=== PATIENT | male | born 1955 | race Hispanic/Latino ===

== ENCOUNTER 2017-02-18 12:40 | Inpatient (IN) | payer MEDICARE, OTHER ==
[2017-02-18 12:40] VITALS: BMI 24.1
--- NOTE | 2017-02-18 12:53 | C.PDOC ---
History Of Present Illness 61 Y/O MALE PRESENTS TO ED INITIALLY REQUESTING DETOX. PATIENT NOW REPORTS SUICIDAL IDEATION. DENIES SUICIDAL PLAN, ATTEMPT, OR OTHER COMPLAINTS. Time Seen by Provider: 02/18/17 12:50 Chief Complaint (Nursing): Substance Abuse History Per: Patient History/Exam Limitations: no limitations Onset/Duration Of Symptoms: Persistent Current Symptoms Are (Timing): Still Present Associated Symptoms: Suicidal Thoughts. denies: Suicidal Plan Recent travel outside of the [place]: No Past Medical History Reviewed: Historical Data, Nursing Documentation, Vital Signs Vital Signs: Last Vital Signs Temp 98.3 F 02/18/17 14:17 Pulse 64 02/18/17 14:17 Resp 16 02/18/17 14:17 BP 138/65 02/18/17 14: Pulse Ox 97 02/18/17 17:45 - Medical History PMH: Anemia, Anxiety, CAD, Diabetes, HTN, Hypercholesterolemia, Peripheral Edema Surgical History: CABG (x 3) - [facility] Procedures BYPASS RIGHT FEMORAL ARTERY TO POPLIT ART, OPEN APPROACH (06/10/16) CHANGE PRESSURE DRESSING ON LEFT LOWER EXTREMITY (10/25/16) CORONAR ARTERIOGR-2 CATH (11/08/01) DETACHMENT AT LEFT 1ST TOE, HIGH, OPEN APPROACH (01/25/16) DETACHMENT AT LEFT 2ND TOE, COMPLETE, OPEN APPROACH (05/02/16) DETACHMENT AT LEFT LOWER LEG, HIGH, OPEN APPROACH (08/24/16) DILATE L ANT TIB ART, BIFURC, W DRUG-ELUT INTRA, PERC (05/02/16) DILATE L FEM ART, BIFURC, W INTRALUM DEV, PERC (05/02/16) DILATE OF L POPL ART WITH DRUG-ELUT INTRALUM, PERC APPROACH (01/25/16) DILATION OF L FEM ART WITH DRUG-ELUT INTRALUM, PERC APPROACH (01/25/16) ENDOSC POLYPECTOMY OF LG INTEST (10/30/04) EXCISION OF L FOOT SUBCU/FASCIA, OPEN APPROACH (05/02/16) EXCISION OF LEFT TIBIA, OPEN APPROACH (10/25/16) EXERCISE TREATMENT OF MUSCULOSK LOW BACK/LE USING PROSTHESIS (08/30/16) EXTIRPATION OF MATTER FROM L FEM ART, BIFURC, PERC APPROACH (05/02/16) EXTIRPATION OF MATTER FROM L FEM ART, PERC APPROACH (01/25/16) EXTIRPATION OF MATTER FROM L POPL ART, PERC APPROACH (01/25/16) HOME MANAGEMENT TREATMENT (08/30/16) INSERTION OF INFUSION DEV INTO SUP VENA CAVA, PERC APPROACH (08/30/16) INTRODUCE OF OTH THROMBOLYTIC INTO PERIPH ART, PERC APPROACH (05/02/16) LEFT HEART CARDIAC CATH (11/08/01) LT HEART ANGIOCARDIOGRAM (11/08/01) MANUAL THERAPY TECHNIQUES TREATMENT OF MUSCULOSK LOW BACK/LE (08/30/16) MRI OF OTHER AND UNSPECIFIED SITES (02/03/03) OTHER LOCAL DESTRUC SKIN (06/19/99) PLAIN RADIOGRAPHY OF AORTA, BI LE ART USING OTH CONTRAST (05/02/16) RESECTION OF LEFT METATARSAL, OPEN APPROACH (05/02/16) RETROGRADE PYELOGRAM (06/12/03) TETANUS TOXOID ADMINIST (07/17/14) TRANSURETH BLADD BIOPSY (06/12/03) TU DESTRUC BLADD LES NEC (01/15/04) WHEELCHAIR MOBILITY TREATMENT (08/30/16) Family History: States: Unknown Family Hx - Social History Hx Tobacco Use: Yes Hx Alcohol Use: No (denies) Hx Substance Use: Yes - Immunization History Hx Influenza Vaccination: No Review Of Systems Except As Marked, All Systems Reviewed And Found Negative. Constitutional: Negative for: Fever Cardiovascular: Negative for: Chest Pain, Palpitations Respiratory: Negative for: Cough, Shortness of Breath Gastrointestinal: Negative for: Nausea, Vomiting, Abdominal Pain, Diarrhea Psych: Positive for: Suicidal ideation Physical Exam - Physical Exam Appears: Non-toxic, No Acute Distress, Other (FLIPPANT, NO ACUTE DISTRESS OR SIGNS OF WD) Skin: Warm, Dry Head: Atraumatic, Normacephalic Chest: Symmetrical Cardiovascular: Rhythm Regular Respiratory: Normal Breath Sounds, No Rales, No Rhonchi, No Wheezing Gastrointestinal/Abdominal: Soft, No Tenderness Back: Normal Inspection Extremity: Capillary Refill (< 2 SEC.), Other (NECROTIC TIPS TO 1st, 4th, & 5th toes - ERYTHEMA TO ALL RIGHT TOES. LEFT BKA.) Neurological/Psych: Oriented x3 ED Course And Treatment - Laboratory Results Result Diagrams: 02/18/17 13:38 02/18/17 13:38 O2 Sat by Pulse Oximetry: 97 (RA) Pulse Ox Interpretation: Normal - Other Rad R FOOT X-RAY X-Ray: Viewed By Me, Read By Radiologist Interpretation: IMPRESSION: Degenerative changes. Osseous demineralization. No acute displaced fracture or dislocation identified.If symptoms persist, or if there is continued clinical concern, x-ray follow-up in 7-10 days should be considered. Progress - Re-Evaluation Re-evaluation Note: 02/18/17 12:52 D/W CRISIS JANAY S/P PT EVAL. STATES WHEN PT ADVISED NO DETOX BED AVAIL PT CO SUICIDAL IDEATION. WILL EVAL FOR POSSIBLE PSYCH ADMIT 02/18/17 13:50 PS W R FOOT LESIONS X 1 MONTH. DENIES PAIN. D/W PODIATRY RESIDENT WILL EVAL IN ER 02/18/17 15:09 d/w podiatry: no emergent plan for surgery, no indication for abx @ this time. Dressing changes only. d/w crisis, dr chacko accepts for psych/detox. uds pending. 02/18/17 16:12 APPEARS COMFORTABLE NAD. IVF IN PROGRESS. REPEAT VBG PENDING 02/18/17 17:10 REPEAT LACTATE IMPROVED COMPARED TO PRIOR. MED CLEAR FOR PSYCH. CRISIS NOTIFIED. RECOMMEND MEDICINE AND PODIATRY CONSULT FOR FURTHER MANAGEMENT OF FOOT AND UTI. - Data Reviewed Data Reviewed: Lab, Diagnostic imaging, Old records Disposition Counseled Patient/Family Regarding: Studies Performed, Diagnosis - Disposition Disposition: HOSPITALIZED Disposition Time: 18:02 Condition: STABLE Forms: [facility] (Macanese) - POA Present On Arrival: None - Clinical Impression Clinical Impression: Depression, Opiate abuse, continuous, UTI (urinary tract infection), Dry gangrene - Scribe Statement The provider has reviewed the documentation as recorded by the Scribe SM All medical record entries made by the Scribe were at my direction and personally dictated by me. I have reviewed the chart and agree that the record accurately reflects my personal performance of the history, physical exam, medical decision making, and the department course for this patient. I have also personally directed, reviewed, and agree with the discharge instructions and disposition. Decision To Admit - Pt Status Changed To: Hospital Disposition Of: Inpatient - Admit Certification Admit to Inpatient:: After my assessment, the patient will require hospitalization for at least two midnights. This is because of the severity of symptoms shown, intensity of services needed, and/or the medical risk in this patient being treated as an outpatient. - InPatient: Physician Admission Certification: I certify that this patient requires 2 or more midnights of care for the following reason:: SEE NOTE - . Bed Request Type: Psychiatry Admitting Physician: Casey Chacko Patient Diagnosis: Depression, Opiate abuse, continuous, UTI (urinary tract infection), Dry gangrene
[2017-02-18 13:43] LABS: BASO # 0.1 K/uL (0.0-0.2); BASO % 0.7 % (0.0-2.0); EOS # 0.4 K/uL (0.0-0.7); EOS % 4.3 % (0.0-4.0); HEMATOCRIT 34.2 % (35.0-51.0); LYMPH # 1.3 K/uL (1.0-4.3); LYMPH % 14.2 % (20.0-40.0); MEAN CORPUSCULAR HEMOGLOBIN 29.2 pg (27.0-31.0); MEAN CORPUSCULAR HGB CONC 33.6 g/dL (33.0-37.0); MONO # 0.5 K/uL (0.0-0.8); MONO % 5.7 % (0.0-10.0); RED CELL DISTRIBUTION WIDTH 13.8 % (11.5-14.5)
[2017-02-18 13:53] LABS: CHLORIDE 100 mmol/L (98-107); POTASSIUM 3.9 mmol/L (3.6-5.2); SODIUM 136 mmol/L (132-148)
[2017-02-18 13:55] LABS: AST/SGOT 16 U/L (17-59); BILIRUBIN,TOTAL 0.4 mg/dL (0.2-1.3); CARBON DIOXIDE 22 mmol/L (22-30); GFR AFRICAN-AMERICAN > 60
[2017-02-18 13:56] LABS: ALB/GLOB RATIO 0.9 (1.0-2.1); ALCOHOL SERUM < 10 mg/dl (0-10); ALKALINE PHOSPHATASE 86 U/L (38-126); ALT/SGPT 22 U/L (21-72); BLOOD UREA NITROGEN 20 mg/dL (9-20); CALCIUM 8.6 mg/dl (8.6-10.4); GLUCOSE,RANDOM 368 mg/dL (75-110); TOTAL PROTEIN 6.5 g/dL (6.3-8.3)
[2017-02-18] MEDS ORDERED: Sodium Chloride 0.9% 2,500 ML IV ONE (14:23)
[2017-02-18] MEDS ORDERED: (Novolin R) Insulin Human Regular 100 units/ml vial IV STA (14:23)
--- NOTE | 2017-02-18 14:28 | RAD ---
PROCEDURE: Right Foot Radiographs. HISTORY: trauma COMPARISON: None available. FINDINGS: BONES: Osseous demineralization limits evaluation for acute fracture lines. No acute displaced fracture. Small heel spur and calcaneal enthesophyte JOINTS: No dislocation. SOFT TISSUES: Unremarkable. No evidence of radiopaque foreign body. OTHER FINDINGS: None. IMPRESSION: Degenerative changes. Osseous demineralization. No acute displaced fracture or dislocation identified.If symptoms persist, or if there is continued clinical concern, x-ray follow-up in 7-10 days should be considered.
[2017-02-18] MEDS ORDERED: Sodium Chloride 0.9% 1,000 ML ONE (14:39)
[2017-02-18] MEDS ORDERED: (Novolin R) Insulin Human Regular 100 units/ml vial ONE (14:39)
--- NOTE | 2017-02-18 14:49 | CP.PCM.CON ---
History of Present Illness - History of Present Illness History of Present Illness: 61 year old male with PMHx including CAD s/p CABG, IVDA, Hepatitis C, DM, osteomyelitis, and L BKA seen in the ED for consult of right foot gangrene. He is an unreliable historian. Patient has been seen previously by podiatry at various [facility]. He states that he saw Dr. Myers last week and states that his foot looks better today. He states that he is here today for detox. He admits to pain to this right foot. He states that he was taking antibiotics prescribed to him but does not remember which ones he was given. Pt denies F/C/N/V/SOB. Social: denies EtOH. Admits cigarettes. Admits to heroin abuse All: NKDA Past Patient History - Infectious Disease Hx of Infectious Diseases: None - Tetanus Immunizations Tetanus Immunization: Up to Date (07/2014) - Past Medical History & Family History Past Medical History?: Yes - Past Social History Smoking Status: Heavy Smoker > 10 Cigarettes Daily - CARDIAC Hx Hypercholesterolemia: Yes Hx Hypertension: Yes Hx Peripheral Edema: Yes - PULMONARY Hx Respiratory Disorders: No - NEUROLOGICAL Hx Alzheimer's Disease: No - HEENT Hx HEENT Problems: No - RENAL Hx Chronic Kidney Disease: No - ENDOCRINE/METABOLIC Hx Endocrine Disorders: Yes Hx Diabetes Mellitus Type 2: Yes - HEMATOLOGICAL/ONCOLOGICAL Hx Anemia: Yes - INTEGUMENTARY Hx Dermatological Problems: Yes (SKIN DISCOLORATION) Other/Comment: l bka,rt 3RD,4TH TOES AND grt TOE - MUSCULOSKELETAL/RHEUMATOLOGICAL Hx Musculoskeletal Disorders: Yes Hx Falls: Yes Hx Osteomyelitis: Yes Hx Unsteady Gait: Yes Other/Comment: lbka - GASTROINTESTINAL Hx Gastrointestinal Disorders: No - GENITOURINARY/GYNECOLOGICAL Hx Genitourinary Disorders: Yes Hx Prostate Problems: Yes (PROSTATE ca) - PSYCHIATRIC Hx Anxiety: Yes Hx Substance Use: Yes - SURGICAL HISTORY Hx Coronary Artery Bypass Graft: Yes (x 3) - ANESTHESIA Hx Anesthesia: Yes Hx Anesthesia Reactions: No Hx Malignant Hyperthermia: No Meds Allergies/Adverse Reactions: Allergies Allergy/AdvReac Type Severity Reaction Status Date / Time No Known Allergies Allergy Verified 02/18/17 12:43 - Medications Medications: Current Medications Sodium Chloride (Sodium Chloride 0.9%) 2,500 mls @ 1,000 mls/hr IV .Q2H30M ONE Stop: 02/18/17 16:52 Physical Exam - Extremities Exam Additional comments: Lower extremity focused examination: Left: BKA stump Right: Vasc: DP and PT pulses palpable 2/4, temperature gradient warm to cold from proximal to distal. CFT < 3 sec to all digits, no pedal edema Neuro: protective sensation grossly diminished Derm: Dry eschar on distal aspect of right hallux with erythema noted to the distal tip of the hallux. No fluctuance, no malodor, no drainage, no erythema. Dry ulceration noted to distal aspect of 4th toe with eschar. Localized erythema noted to 4th digit distally surrounding the digit. No purulence, no fluctuance, no ascending cellulitis.Erythema also noted to the 5th digit on the right Ortho: Moderate pain on palpation to hallux and 4th digit on the right. - Neurological Exam Neurological exam: Alert - Psychiatric Exam Psychiatric exam: Agitated Results - Vital Signs Recent Vital Signs: Last Vital Signs Temp 98.3 F 02/18/17 14:17 Pulse 64 02/18/17 14:17 Resp 16 02/18/17 14:17 BP 138/65 02/18/17 14:17 Pulse Ox 97 02/18/17 14:23 - Labs Result Diagrams: 02/18/17 13:38 02/18/17 13:38 Labs: Laboratory Results - last 24 hr 02/18/17 02/18/17 02/18/17 13:38 13:38 14:13 WBC 9.0 RBC 3.93 L Hgb 11.5 L Hct 34.2 L MCV 87.0 MCH 29.2 MCHC 33.6 RDW 13.8 Plt Count 252 MPV 9.0 Neut % (Auto) 75.1 H Lymph % (Auto) 14.2 L [place] % (Auto) 5.7 Eos % (Auto) 4.3 H Baso % (Auto) 0.7 Neut # 6.8 Lymph # 1.3 [place] # 0.5 Eos # 0.4 Baso # 0.1 pO2 39 VBG pH 7.35 VBG pCO2 44 VBG HCO3 23.0 VBG Total CO2 25.7 VBG O2 Sat (Calc) 78.4 H VBG Base Excess -1.5 L VBG Potassium 3.8 Glucose 320 H Lactate 2.4 H Sodium 136 138.0 Potassium 3.9 Chloride 100 101.0 Carbon Dioxide 22 Anion Gap 18 BUN 20 Creatinine 1.1 Est GFR ( Amer) > 60 Est GFR (Non-Af Amer) > 60 Random Glucose 368 H Calcium 8.6 Total Bilirubin 0.4 AST 16 L ALT 22 Alkaline Phosphatase 86 Total Protein 6.5 Albumin 3.0 L Globulin 3.4 Albumin/Globulin Ratio 0.9 L Venous Blood Potassium 3.8 Alcohol, Quantitative < 10 Assessment & Plan - Assessment and Plan (Free Text) Assessment: 61 year old male with dry gangrene noted to the distal aspects of the right hallux and right 4th digit Plan: patient examined and evaluated discussed in detail with attending, Dr. Anaya radiographic IMPRESSION: Degenerative changes. Osseous demineralization. No acute displaced fracture or dislocation identified.If symptoms persist, or if there is continued clinical concern, x-ray follow-up in 7-10 days should be considered. chart, labs, vitals reviewed;afebrile, WBC 9.0 foot dressed with betadine, DSD dressing changes with betadine, DSD daily no plans for surgical intervention at this time
[2017-02-18 15:43] LABS: RBC URINE 87 /hpf (0-3); URINE BACTERIA RARE (<OCC); URINE BILIRUBIN NEGATIVE (NEGATIVE); URINE BLOOD 1+ (NEGATIVE); URINE COLOR Amber (YELLOW); URINE GLUCOSE (UA) 3+ mg/dL (Normal); URINE KETONE NEGATIVE (NEGATIVE); URINE LEUKOCYTE ESTERASE 3+ Leu/uL (Negative); URINE PROTEIN 2+ mg/dL (NEGATIVE); URINE UROBILINOGEN NORMAL mg/dL (0.2-1.0); WBC CLUMPS FEW /hpf; WBC URINE 1987 /hpf (0-5)
[2017-02-18] MEDS ORDERED: Ciprofloxacin 400mg/200ml D5W 400 MG/200 ML BAG IV ONE (16:00)
[2017-02-18 17:08] LABS: VENOUS BLOOD GAS BASE EXCESS -10.4 mmol/L (0.0-2.0); VENOUS BLOOD GAS PCO2 31 mmHg (40-60); VENOUS BLOOD PH 7.29 (7.32-7.43)
[2017-02-18] MEDS ORDERED: Potassium Chloride 20 mEq/15 ml LIQ UD PO STA (17:10)
[2017-02-18] MEDS ORDERED: Ciprofloxacin 400mg/200ml D5W 400 MG/200 ML BAG IVPB ONE (17:23)
[2017-02-18] MEDS ORDERED: Potassium Chloride 20 mEq/15 ml LIQ UD ONE (17:24)
--- NOTE | 2017-02-18 23:05 | PCM.BM ---
<Sirisha Blanco - Last Filed: 02/18/17 23:03> Treatment Plan Problems - Problems identified on initial assessmt Opiates Abuse Date Initiated: 02/18/17 Time Initiated: 19:45 Assessment reference: NA Status: Active Suicidal Ideation Date Initiated: 02/18/17 Time Initiated: 19:45 Assessment reference: NA Status: Active Treatment assets and liabiliti Patient Liabilities: live alone, physical pain, financial problems, poor support system, substance abuse, medical problems - Milieu Protocol Maintain good personal hygiene: daily Encourage regular showers, daily Remind patient to perform daily oral care Maintain personal safety: every shift Educate patient to report safety concerns to staff, every shift Monitor environment for contraband/sharps Medication safety: Monitor for expected outcome, potential side effects: every shift, Assess barriers to learning: every shift, Assess readiness for medication education: every shift <Heide Fernandez - Last Filed: 02/20/17 10:15> Discharge/Continuing Care - Education Needs Education Needs: Patient Medication, Patient Coping Skills, Patient Placement options, Patient Community resources, Patient Uses of Medical Equipment, Patient Personal Hygiene/Grooming - Discharge Discharge Criteria: Tolerates medication w/o severe side effects, Ability to care for self, Reduction of target symptoms <[place] - Last Filed: 02/24/17 19:02> - Diagnosis (1) Opiate dependence Status: Acute Interventions: 02/24/17 19:01 Methadone taper (2) Major depressive disorder, recurrent, unspecified Status: Acute Interventions: 02/24/17 19:02 Psychotherapy
[2017-02-19] MEDS ORDERED: Bacitracin 500 Units/gm Oint Foilpak UD TOP PRN (15:23)
--- NOTE | 2017-02-19 20:05 | PCM.PSYCH ---
Initial Psychiatric Evaluation - Initial Psychiatric Evaluation Type of Admission: Voluntary Legal Status: Capacity Chief Complaint (in patient's own words): I'm here for the treatment of heroine use and withdrawal History of Present Illness and Precipitating Events: Patient is a 61 years old, , retired male with history of depression and heroin use was admitted for treatment of withdrawing from heroin. Reported problem with sleep but no appetite problem. Denied any current suicidal or homicidal ideations or any suicidal attempts. Reported yesterday had suicidal ideations and came to ER for treatment and help. Denied any psychotic manic or anxiety symptoms. No previous treatment. Reported he started using heroine 1 year ago, was using 20 bags daily, snorting. Last use reported yesterday. Patient reported that before starting heroin, he was abusing opiate pain medications including morphine and Percocet. Denied use of any other drugs including cocaine cannabis or alcohol. Smokes one pack of cigarettes daily. Patient has history of diabetes mellitus left below-knee amputation. Also has history of CABG. Current Medications: Active Medications Generic Name Dose Route Start Last Admin Trade Name Freq PRN Reason Stop Dose Admin Acetaminophen 650 mg 02/18/17 18:00 Tylenol 325mg Tab PO Q6 PRN Fever >100.4 F Bacitracin 1 ea 02/20/17 10:00 Bacitracin TOP DAILY AYESHA Benztropine Mesylate 2 mg 02/18/17 18:00 Cogentin PO Q6 PRN Extra Pyramidal Symptoms Ciprofloxacin 500 mg 02/19/17 10:00 02/19/17 18:05 Cipro PO 500 mg BID AYESHA Administration Clonidine HCl 0.1 mg 02/18/17 18:30 Catapres PO Q8 PRN COWS Score More or Equal to 5 Diphenhydramine HCl 50 mg 02/18/17 18:30 Benadryl PO Q6 PRN Extra Pyramidal Symptoms Haloperidol 5 mg 02/18/17 18:00 Haldol PO Q8 PRN Moderate Agitation Loperamide HCl 2 mg 02/18/17 18:30 Imodium PO Q8 PRN Diarrhea Metformin HCl 500 mg 02/18/17 20:45 02/19/17 18:05 Glucophage PO 500 mg BID AYESHA Administration Methadone HCl 10 mg 02/20/17 10:30 Methadone PO 02/20/17 10:31 ONCE ONE Ondansetron HCl 4 mg 02/18/17 18:01 Zofran Tab PO Q8 PRN Nausea/Vomiting Pseudoephedrine HCl 60 mg 02/18/17 18:01 Sudafed Tab PO QID PRN Nasal/Sinus Congestion Trazodone HCl 50 mg 02/18/17 22:00 02/18/17 21:00 Desyrel PO 50 mg HS AYESHA Administration Past Psychiatric History - Past Psychiatric History Previous Treatment History: None History of Abuse: None reported History of ETOH/Drug Use: See HPI History of Family Illness: Reported his maternal and has unknown psychiatric illness Pertinent Medical Hx (Current Medical&Sleep Prob, Allergies): Allergies Allergy/AdvReac Type Severity Reaction Status Date / Time No Known Allergies Allergy Verified 02/18/17 12:43 metFORMIN [glucOPHAGE] 500 mg PO BID tab 02/09/17 CAD s/p CABG, , Hepatitis C DM, osteomyelitis, Review of Systems - Psychiatric Psychiatric: Depression, Other Mental Status Examination - Personal Presentation Personal Presentation: Looks stated age - Affect Affect: Depressed - Motor Activity Motor Activity: Calm - Reliability in Providing Information Reliability in Providing Information: Fair - Speech Speech: Organized - Mood Mood: Depressed - Formal Thought Process Formal Thought Process: No Impairment - Hallucinations/Delusions Hallucinations: Other (None reported) Delusions: Other - Obsessions/Compulsions Obsessions: None Compulsions: None - Cognitive Functions Orientation: Person, Place, Situation, Time Sensorium: Alert Attention/Concentration: Attentive Abstract Thinking: [place] Estimate of Intelligence: Average Judgement: Intact, as evidence by: Insight regarding need for hospitalization Memory: Recent intact, as evidence by: 3/3 object recall, Remote intact, as evidenced by: Ability to recall historical events - Risk Risk: Withdrawal, Diminished functioning - Strength & Assets Inventory Strength & Assets Inventory: Cooperative - Limitations Limitations: Living alone DSM 5 DX - DSM 5 DSM 5 Diagnosis: Opiate use disorder severe Unspecified depressive disorder - Recommended/Plan of Treatment Treatment Recommendations and Plan of Treatment: Patient education Supportive therapy Continue treatment with methadone taper Other when necessary medications Will call surgery as patient has gangrene on right big toe Projected ELOS: 8-10 days Prognosis: Average - Smoking Cessation Smoking Cessation Initiated: Yes
--- NOTE | 2017-02-19 20:25 | CP.PCM.CON ---
History of Present Illness - History of Present Illness History of Present Illness: Vascular Surgery Consult Note for Dr. Chopra 61 M with PMH ofCAD s/p CABG, IVDA, Hepatitis C, DM, osteomyelitis, and L BKA presents with complaint of right foot gangrene. Patient is poor historian. Patient states his foot has been like this for months. Patient reports that he was seen by Dr. Myers last week and states that his foot looks better. Patient complaining of Right foot pain. He rates pain 9/10 in severity. He describes the pain as constant and sharp located in digits of right foot. Palpation exacerbates pain while nothing alleviates it. Patient was recently prescribed antibiotics for right foot. Patient was admitted to psych for detox and found to have UTI, which he is being treated for. Admits numbness/tingling. Denies fever/chills, cp, sob, palpiations, abd pain, n/v/d, drainage, bleeding. PMH: CAD s/p CABG, PAD, IVDA, Hepatitis C, DM, osteomyelitis, and L BKA Meds: As per EMR Allergy: NKDA PSH: fem-pop bypasss with goretex graft, L BKA, CABG Hosp: numerous visit within last year for different complaints FH: unknown Social: Admits tobacco use and heroin abuse but denies ETOH Review of Systems - Review of Systems All systems: reviewed and no additional remarkable complaints except (pain, numbness/tingling) Past Patient History - Infectious Disease Hx of Infectious Diseases: None - Tetanus Immunizations Tetanus Immunization: Up to Date (07/2014) - Past Medical History & Family History Past Medical History?: Yes - Past Social History Smoking Status: Heavy Smoker > 10 Cigarettes Daily - CARDIAC Hx Hypercholesterolemia: Yes Hx Hypertension: Yes Hx Peripheral Edema: Yes - PULMONARY Hx Respiratory Disorders: No - NEUROLOGICAL Hx Alzheimer's Disease: No - HEENT Hx HEENT Problems: No - RENAL Hx Chronic Kidney Disease: No - ENDOCRINE/METABOLIC Hx Endocrine Disorders: Yes Hx Diabetes Mellitus Type 2: Yes - HEMATOLOGICAL/ONCOLOGICAL Hx Anemia: Yes - INTEGUMENTARY Hx Dermatological Problems: Yes (SKIN DISCOLORATION) Other/Comment: l bka,rt 3RD,4TH TOES AND grt TOE - MUSCULOSKELETAL/RHEUMATOLOGICAL Hx Musculoskeletal Disorders: Yes Hx Falls: Yes Hx Osteomyelitis: Yes Hx Unsteady Gait: Yes Other/Comment: lbka - GASTROINTESTINAL Hx Gastrointestinal Disorders: No - GENITOURINARY/GYNECOLOGICAL Hx Genitourinary Disorders: Yes Hx Prostate Problems: Yes (PROSTATE ca) - PSYCHIATRIC Hx Anxiety: Yes Hx Substance Use: Yes - SURGICAL HISTORY Hx Coronary Artery Bypass Graft: Yes (x 3) - ANESTHESIA Hx Anesthesia: Yes Hx Anesthesia Reactions: No Hx Malignant Hyperthermia: No Meds Allergies/Adverse Reactions: Allergies Allergy/AdvReac Type Severity Reaction Status Date / Time No Known Allergies Allergy Verified 02/18/17 12:43 - Medications Medications: Current Medications Acetaminophen (Tylenol 325mg Tab) 650 mg PO Q6 PRN PRN Reason: Fever >100.4 F Bacitracin (Bacitracin) 1 ea TOP DAILY [facility] Benztropine Mesylate (Cogentin) 2 mg PO Q6 PRN PRN Reason: Extra Pyramidal Symptoms Ciprofloxacin (Cipro) 500 mg PO BID [facility] Last Admin: 02/19/17 18:05 Dose: 500 mg Clonidine HCl (Catapres) 0.1 mg PO Q8 PRN PRN Reason: COWS Score More or Equal to 5 Diphenhydramine HCl (Benadryl) 50 mg PO Q6 PRN PRN Reason: Extra Pyramidal Symptoms Haloperidol (Haldol) 5 mg PO Q8 PRN PRN Reason: Moderate Agitation Loperamide HCl (Imodium) 2 mg PO Q8 PRN PRN Reason: Diarrhea Metformin HCl (Glucophage) 500 mg PO BID [facility] Last Admin: 02/19/17 18:05 Dose: 500 mg Methadone HCl (Methadone) 10 mg PO ONCE ONE Stop: 02/20/17 10:31 Nicotine (Nicoderm Cq) 1 patch TD DAILY [facility] Ondansetron HCl (Zofran Tab) 4 mg PO Q8 PRN PRN Reason: Nausea/Vomiting Pseudoephedrine HCl (Sudafed Tab) 60 mg PO QID PRN PRN Reason: Nasal/Sinus Congestion Trazodone HCl (Desyrel) 50 mg PO [facility] Last Admin: 02/18/17 21:00 Dose: 50 mg Physical Exam - Constitutional Appears: No Acute Distress - Head Exam Head Exam: ATRAUMATIC, NORMOCEPHALIC - Eye Exam Eye Exam: Normal appearance - ENT Exam ENT Exam: Mucous Membranes Moist - Neck Exam Neck exam: Positive for: Full Rom - Respiratory Exam Respiratory Exam: NORMAL BREATHING PATTERN - Cardiovascular Exam Cardiovascular Exam: REGULAR RHYTHM - GI/Abdominal Exam GI & Abdominal Exam: Soft. absent: Tenderness - Extremities Exam Extremities exam: Positive for: tenderness (R foot). Negative for: calf tenderness Additional comments: +DP, +PT pulses on RLE sensation diminished in right foot R foot: 1st, 4th and 5th digits are gangrenous - no drainage s/p Left BKA - Neurological Exam Neurological exam: Alert - Psychiatric Exam Psychiatric exam: Normal Affect, Normal Mood - Skin Skin Exam: Dry, Warm Results - Vital Signs Recent Vital Signs: Last Vital Signs Temp 98.2 F 02/19/17 07:21 Pulse 60 02/19/17 15:50 Resp 19 02/19/17 07:21 BP 130/63 02/19/17 15:50 Pulse Ox 98 02/18/17 19:04 - Labs Result Diagrams: 02/18/17 13:38 02/18/17 13:38 Labs: Laboratory Results - last 24 hr 02/19/17 02/19/17 07:22 17:37 POC Glucose (mg/dL) 103 154 H Assessment & Plan - Assessment and Plan (Free Text) Plan: 61 M with PMH of CAD s/p CABG, IVDA, Hepatitis C, DM, osteomyelitis, and L BKA presents with complaint of right foot gangrene -Continue current management -Dressing changes as per Podiatry -No surgical intervention at this time -Will PARUL Cesar PGY1
[2017-02-20 02:08] LABS: URINE BACTERIA RARE (<OCC); URINE BILIRUBIN NEGATIVE (NEGATIVE); URINE COLOR Straw (YELLOW); URINE GLUCOSE (UA) 3+ mg/dL (Normal); URINE KETONE NEGATIVE (NEGATIVE); URINE LEUKOCYTE ESTERASE 3+ Leu/uL (Negative); URINE PROTEIN NEGATIVE (NEGATIVE); URINE UROBILINOGEN NORMAL mg/dL (0.2-1.0); WBC CLUMPS FEW /hpf; WBC URINE 267 /hpf (0-5)
[2017-02-20 02:12] LABS: RBC URINE 1 /hpf (0-3); URINE BLOOD NEGATIVE (NEGATIVE)
[2017-02-20] MEDS ORDERED: Bacitracin 500 Units/gm Oint Foilpak UD TOP SCH (10:00)
--- NOTE | 2017-02-20 10:32 | CP.PCM.PN ---
Subjective - Date & Time of Evaluation Date of Evaluation: 02/20/17 Time of Evaluation: 08:05 - Subjective Subjective: SURGERY NOTE FOR DR. RANDOLPH 61M seen and examined at bedside. Patient currently in wheel chair continues to complain of right foot/toe pain that has been going on for a while. New dressing on being managed by podiatry. Objective - Vital Signs/Intake and Output Vital Signs (last 24 hours): Temp Pulse Resp BP Pulse Ox 98.2 F 60 19 130/63 98 02/19/17 07:21 02/19/17 15:50 02/19/17 07:21 02/19/17 15:50 02/18/17 19:04 - Medications Medications: Current Medications Acetaminophen (Tylenol 325mg Tab) 650 mg PO Q6 PRN PRN Reason: Fever >100.4 F Bacitracin (Bacitracin) 1 ea TOP DAILY [facility] Last Admin: 02/20/17 09:36 Dose: Not Given Benztropine Mesylate (Cogentin) 2 mg PO Q6 PRN PRN Reason: Extra Pyramidal Symptoms Ciprofloxacin (Cipro) 500 mg PO BID [facility] Last Admin: 02/20/17 09:26 Dose: 500 mg Clonidine HCl (Catapres) 0.1 mg PO Q8 PRN PRN Reason: COWS Score More or Equal to 5 Last Admin: 02/20/17 08:50 Dose: 0.1 mg Diphenhydramine HCl (Benadryl) 50 mg PO Q6 PRN PRN Reason: Extra Pyramidal Symptoms Haloperidol (Haldol) 5 mg PO Q8 PRN PRN Reason: Moderate Agitation Loperamide HCl (Imodium) 2 mg PO Q8 PRN PRN Reason: Diarrhea Metformin HCl (Glucophage) 500 mg PO BID [facility] Last Admin: 02/20/17 09:26 Dose: 500 mg Methadone HCl (Methadone) 10 mg PO ONCE ONE Stop: 02/20/17 10:31 Last Admin: 02/20/17 09:32 Dose: 10 mg Nicotine (Nicoderm Cq) 1 patch TD DAILY [facility] Last Admin: 02/20/17 09:26 Dose: 1 patch Ondansetron HCl (Zofran Tab) 4 mg PO Q8 PRN PRN Reason: Nausea/Vomiting Pseudoephedrine HCl (Sudafed Tab) 60 mg PO QID PRN PRN Reason: Nasal/Sinus Congestion Trazodone HCl (Desyrel) 50 mg PO HS [facility] Last Admin: 02/19/17 21:25 Dose: 50 mg - Constitutional Appears: Non-toxic, No Acute Distress - Cardiovascular Exam Cardiovascular Exam: REGULAR RHYTHM, +S1, +S2 - Extremities Exam Additional comments: right foot/toes wrapped in curlex, no drainage noted. left BKA - Neurological Exam Neurological Exam: Alert, Awake Assessment and Plan - Assessment and Plan (Free Text) Assessment: 61M presents in psych unit with right toe gangrene Plan: - continue management as per podiatry - no surgical intervention at this time Further recs discuss with Dr. Keysha Cruz, PGY2
--- NOTE | 2017-02-20 16:06 | PCM.PYCHPN ---
Psychiatric Progress Note - Psychiatric Progress Note Patient seen today, length of contact: 15 minutes Patient Chief Complaint: Today I'm feeling much better. I only feel pain in my right foot. Problems Identified/Issues Discussed: Patient seen. Chart reviewed. Case discussed with the staff. Issues related to illness and treatment were discussed with the patient. Reported compliant with treatment with no adverse affects. Tolerating treatment very well. Today patient reported feeling much better with no minimal withdrawal symptoms. Also reported pain in his right foot. Surgery and podiatry is on the case. At the time of evaluation, patient was awake alert oriented 3, had no delusions, no auditory or visual hallucinations, no suicidal ideations or homicidal ideations. Medical Problems: Coronary artery disease S/P CABG Diabetes mellitus UTI Diagnostic Results: Reviewed DSM 5 Symptoms Update: Improving with treatment Medication Change: No Medical Record Reviewed: Yes Consults ordered or reviewed: Reviewed Mental Status Examination - Cognitive Function Orientation: Person, Place, Situation, Time Memory: Intact Attention: WNL Concentration: WNL Association: WN Fund of Knowledge: [facility] Decription of patient's judgement and insights: Fair - Mood Mood: Depressed (Less than before) - Affect Affect: Depressed - Speech Speech: Appropriate - Formal Thought Process Formal Thought Process: No Impairment Psychotic Thoughts and Behaviors: None - Suicidal Ideation Suicidal Ideation: No - Homicidal Ideation Homicidal Ideation: No Goal/Treatment Plan - Goal/Treatment Plan Need for Continued Stay: Remain at risks for inpatient hospitalization, Discharge may exacerbated symptoms, Severe functional impairment Progress Toward Problem(s) and Goals/Treatment Plan: Patient education Supportive therapy Continue treatment with methadone taper Other when necessary medications Estimated Date of D/C: 02/25/17 - Smoking Cessation Smoking Cessation Initiated: Yes
--- NOTE | 2017-02-21 17:08 | PCM.PYCHPN ---
Psychiatric Progress Note - Psychiatric Progress Note Patient seen today, length of contact: 15 minutes Patient Chief Complaint: I'm feeling much better. I still feel pain in my right foot. Problems Identified/Issues Discussed: Patient seen. Chart reviewed. Case discussed with the staff. Issues related to illness and treatment were discussed with the patient. Reported compliant with treatment with no adverse affects. Tolerating treatment very well. Patient reported feeling much better with no withdrawal symptoms. Also reported pain in his right foot. Surgery and podiatry is on the case. At the time of evaluation, patient was awake alert oriented 3, had no delusions, no auditory or visual hallucinations, no suicidal ideations or homicidal ideations. Medical Problems: Coronary artery disease S/P CABG Diabetes mellitus UTI Diagnostic Results: Reviewed DSM 5 Symptoms Update: Improving with treatment Medication Change: No Medical Record Reviewed: Yes Consults ordered or reviewed: Reviewed Mental Status Examination - Cognitive Function Orientation: Person, Place, Situation, Time Memory: Intact Attention: WNL Concentration: WNL Association: WN Fund of Knowledge: [facility] Decription of patient's judgement and insights: Fair - Mood Mood: Neutral - Affect Affect: Other (Appropriate) - Speech Speech: Appropriate - Formal Thought Process Formal Thought Process: No Impairment Psychotic Thoughts and Behaviors: None - Suicidal Ideation Suicidal Ideation: No - Homicidal Ideation Homicidal Ideation: No Goal/Treatment Plan - Goal/Treatment Plan Need for Continued Stay: Remain at risks for inpatient hospitalization, Discharge may exacerbated symptoms, Severe functional impairment Progress Toward Problem(s) and Goals/Treatment Plan: Patient education Supportive therapy Continue treatment with methadone taper Other when necessary medications Feels much better but still needs more time for stabilization. Estimated Date of D/C: 02/25/17 - Smoking Cessation Smoking Cessation Initiated: Yes
--- NOTE | 2017-02-22 16:14 | PCM.PYCHPN ---
Psychiatric Progress Note - Psychiatric Progress Note Patient seen today, length of contact: 15 minutes Patient Chief Complaint: I'm feeling much better. Can I get methadone 5 mg. Problems Identified/Issues Discussed: Patient seen. Chart reviewed. Case discussed with the staff. Issues related to illness and treatment were discussed with the patient. Reported compliant with treatment with no adverse affects. Tolerating treatment very well. Patient reported feeling much better with no withdrawal symptoms. Asking for more methadone 5 mg. Education provided about the medication as patient is time with his detox. At the time of evaluation, patient was awake alert oriented 3, had no delusions, no auditory or visual hallucinations, no suicidal ideations or homicidal ideations. Medical Problems: Coronary artery disease S/P CABG Diabetes mellitus UTI Diagnostic Results: Reviewed DSM 5 Symptoms Update: Improving with treatment Medication Change: No Medical Record Reviewed: Yes Consults ordered or reviewed: Reviewed Mental Status Examination - Cognitive Function Orientation: Person, Place, Situation, Time Memory: Intact Attention: WNL Concentration: WNL Association: WN Fund of Knowledge: [facility] Decription of patient's judgement and insights: Fair - Mood Mood: Neutral - Affect Affect: Other (Appropriate) - Speech Speech: Appropriate - Formal Thought Process Formal Thought Process: No Impairment Psychotic Thoughts and Behaviors: None - Suicidal Ideation Suicidal Ideation: No - Homicidal Ideation Homicidal Ideation: No Goal/Treatment Plan - Goal/Treatment Plan Need for Continued Stay: Remain at risks for inpatient hospitalization, Discharge may exacerbated symptoms, Severe functional impairment Progress Toward Problem(s) and Goals/Treatment Plan: Patient education Supportive therapy Continue treatment with methadone taper Other when necessary medications Feels much better but still needs more time for stabilization. Estimated Date of D/C: 02/25/17 - Smoking Cessation Smoking Cessation Initiated: Yes
[2017-02-23 07:36] VITALS: O2SAT 99
--- NOTE | 2017-02-23 16:34 | PCM.PYCHPN ---
Psychiatric Progress Note - Psychiatric Progress Note Patient seen today, length of contact: 15 minutes Patient Chief Complaint: I'm feeling much better. Problems Identified/Issues Discussed: Patient seen. Chart reviewed. Case discussed with the staff. Issues related to illness and treatment were discussed with the patient. Reported compliant with treatment with no adverse affects. Tolerating treatment very well. Will repeat urinalysis. Patient reported feeling much better with no withdrawal symptoms. At the time of evaluation, patient was awake alert oriented 3, had no delusions , no auditory or visual hallucinations, no suicidal ideations or homicidal ideations. Medical Problems: Coronary artery disease S/P CABG Diabetes mellitus UTI Diagnostic Results: Reviewed DSM 5 Symptoms Update: Improving with treatment Medication Change: No Medical Record Reviewed: Yes Consults ordered or reviewed: Reviewed Mental Status Examination - Cognitive Function Orientation: Person, Place, Situation, Time Memory: Intact Attention: WNL Concentration: WNL Association: WN Fund of Knowledge: [facility] Decription of patient's judgement and insights: Fair - Mood Mood: Neutral - Affect Affect: Other (Appropriate) - Speech Speech: Appropriate - Formal Thought Process Formal Thought Process: No Impairment Psychotic Thoughts and Behaviors: None - Suicidal Ideation Suicidal Ideation: No - Homicidal Ideation Homicidal Ideation: No Goal/Treatment Plan - Goal/Treatment Plan Need for Continued Stay: Remain at risks for inpatient hospitalization, Discharge may exacerbated symptoms, Severe functional impairment Progress Toward Problem(s) and Goals/Treatment Plan: Patient education Supportive therapy Continue treatment with methadone taper Other when necessary medications Feels much better but still needs more time for stabilization. Estimated Date of D/C: 02/25/17 - Smoking Cessation Smoking Cessation Initiated: Yes
[2017-02-24 09:49] VITALS: BP 143/62; PULSE 55; RESP 18; TEMP 97.6
--- NOTE | 2017-02-24 19:04 | PCM.PYCHPN ---
Psychiatric Progress Note - Psychiatric Progress Note Patient seen today, length of contact: 15 minutes Patient Chief Complaint: I'm feeling much better. Problems Identified/Issues Discussed: Patient seen. Chart reviewed. Case discussed with the staff. Issues related to illness and treatment were discussed with the patient. Reported compliant with treatment with no adverse affects. Tolerating treatment very well. Will repeat urinalysis. Patient reported feeling much better with no withdrawal symptoms. At the time of evaluation, patient was awake alert oriented 3, had no delusions , no auditory or visual hallucinations, no suicidal ideations or homicidal ideations. Medical Problems: Coronary artery disease S/P CABG Diabetes mellitus UTI Diagnostic Results: Reviewed DSM 5 Symptoms Update: Improving with treatment Medication Change: No Medical Record Reviewed: Yes Consults ordered or reviewed: Reviewed Mental Status Examination - Cognitive Function Orientation: Person, Place, Situation, Time Memory: Intact Attention: WNL Concentration: WNL Association: WN Fund of Knowledge: [facility] Decription of patient's judgement and insights: Fair - Mood Mood: Neutral - Affect Affect: Other (Appropriate) - Speech Speech: Appropriate - Formal Thought Process Formal Thought Process: No Impairment Psychotic Thoughts and Behaviors: None - Suicidal Ideation Suicidal Ideation: No - Homicidal Ideation Homicidal Ideation: No Goal/Treatment Plan - Goal/Treatment Plan Need for Continued Stay: Remain at risks for inpatient hospitalization, Discharge may exacerbated symptoms, Severe functional impairment Progress Toward Problem(s) and Goals/Treatment Plan: Patient education Supportive therapy Continue treatment with methadone taper Other when necessary medications Feels much better but still needs more time for stabilization. Estimated Date of D/C: 02/25/17 - Smoking Cessation Smoking Cessation Initiated: Yes
--- NOTE | 2017-02-25 16:28 | PCM.PYCHDC ---
Mental Status Examination - Mental Status Examination Orientation: Person, Place, Situation, Time Memory: Intact Mood: Neutral Affect: Other (Appropriate) Speech: Appropriate Attention: WNL Concentration: WNL Association: WNL Fund of Knowledge: WNL Formal Thought Process: No Impairment Description of patient's judgement and insight: Fair Psychotic Thoughts and Behaviors: None Suicidal Ideation: No Current Homicidal Ideation?: No Discharge Summary - Discharge Note Reason for Hospitalization: Opiate use disorder Psychiatric History (includes Medical, Family, Personal Hx): Opiate use disorder , diabetes mellitus Laboratory Data: Abnormal Lab Results 02/25/17 07:40 POC Glucose (mg/dL) 121 H Consultations:: List each consultation separately and include: 1. Reason for request. 2. Findings. 3. Follow-up Consultations: Reviewed Summary of Hospital Course include:: 1. Description of specific treatment plan utilized for patients during their course of treatmen. 2. Summarize the time- course for resolution of acute symptoms and/or regressed behaviors. 3. Describe issues identified and worked on during hospitalization. 4. Describe medication utilized. 5. Describe medical problems identified and treated. 6. Reassessment of suicide risk Summary of Hospital Course: Patient is a 61 years old, , retired male with history of depression and heroin use was admitted for treatment of withdrawing from heroin. Reported problem with sleep but no appetite problem. Denied any current suicidal or homicidal ideations or any suicidal attempts. Reported yesterday had suicidal ideations and came to ER for treatment and help. Denied any psychotic manic or anxiety symptoms. No previous treatment. Reported he started using heroine 1 year ago, was using 20 bags daily, snorting. Last use reported yesterday. Patient reported that before starting heroin, he was abusing opiate pain medications including morphine and Percocet. Denied use of any other drugs including cocaine cannabis or alcohol. Smokes one pack of cigarettes daily. Patient has history of diabetes mellitus left below-knee amputation. Also has history of CABG. During his stay in the hospital patient was treated with methadone for opiate withdrawal symptoms. Patient was started on other when necessary medications also. Patient had UTI and was treated with ciprofloxacin. With the above treatment patient started feeling better. Patient was also seen by medicine surgery for ganglion his wound on his right big toe. Today patient was stable and ready for discharge. At the time of evaluation and discharge, patient was awake alert oriented 3, had no delusions, no auditory or visual hallucinations , no suicidal ideations or homicidal ideations. Patient was discharged in a stable condition. - Diagnosis (1) Opiate dependence Status: Acute (2) Major depressive disorder, recurrent, unspecified Status: Acute - Final Diagnosis (DSM 5) Condition upon Discharge: STABLE Disposition: HOME/ ROUTINE Prescriptions/Medication Reconciliation: metFORMIN [glucOPHAGE] 500 mg PO BID #60 tab traZODone [Desyrel] 50 mg PO HS #30 tab - Smoking Cessation Smoking Cessation Medication prescribed: Yes - Antipsychotic Medications Pt discharged on 2 or more routine antipsychotic medications: No
== END 2017-02-25 11:00 | disposition home or self-care (01) | DRG 895 ==
LOC: C.ER 12:40 → C.5E 18:03
PROVIDERS: ADMIT Psychiatry & Neurology Psychiatry; ATTEND Psychiatry & Neurology Psychiatry
PROC: HZ56ZZZ Individual Psychotherapy for Substance Abuse Treatment, Psychoeducation (ICD-10-PCS; principal; 2017-02-18)
PROC: HZ59ZZZ Individual Psychotherapy for Substance Abuse Treatment, Supportive (ICD-10-PCS; 2017-02-18)
DX: F11.23 Opioid dependence with withdrawal (principal); E11.52 Type 2 diabetes mellitus with diabetic peripheral angiopathy with gangrene; E11.69 Type 2 diabetes mellitus with other specified complication; N39.0 Urinary tract infection, site not specified; F33.9 Major depressive disorder, recurrent, unspecified; M86.9 Osteomyelitis, unspecified; F17.210 Nicotine dependence, cigarettes, uncomplicated; Z89.512 Acquired absence of left leg below knee; Z95.1 Presence of aortocoronary bypass graft; I25.10 Atherosclerotic heart disease of native coronary artery without angina pectoris; B19.20 Unspecified viral hepatitis C without hepatic coma; M67.40 Ganglion, unspecified site

== ENCOUNTER 2017-03-05 07:30 | Day surgery (SDC) | payer MEDICARE ==
[2017-02-28 09:48] VITALS: BMI 24.1
[2017-03-05] MEDS ORDERED: Midazolam 2 MG/2 ML VIAL ONE ×3 (09:28→10:00)
[2017-03-05] MEDS ORDERED: Iodixanol 320 MG/ML 100 ML BOTTLE IV ONE (09:29)
[2017-03-05] MEDS ORDERED: Iodixanol 320 MG/ML 200 ML BOTTLE IV ONE (09:29)
--- NOTE | 2017-03-05 10:32 | CP.SDSHP ---
Same Day Surgery H & P - History Proposed Procedure: Please see enclosed [place] notes. no change. - Allergies Allergies: Allergies No Known Allergies Allergy (Verified 02/28/17 10:00) Short Stay Discharge - Short Stay Discharge Admitting Diagnosis/Reason for Visit: PERIPHERAL VASCULAR DISEASE Disposition: HOME/ ROUTINE
--- NOTE | 2017-03-05 13:51 | OP ---
PROCEDURE DATE: PREOPERATIVE DIAGNOSIS: Vascular disease with gangrene. POSTOPERATIVE DIAGNOSIS: Vascular disease with gangrene. PROCEDURES PERFORMED: Retrograde access, left common femoral artery, selective catheter placement in the infrarenal abdominal aorta, abdominal aortography, bilateral iliofemoral runoff, bilateral lower extremity angiography using digital subtraction. SURGEON: Bob Barbosa MD COMPLICATIONS: None. HISTORY: As follows; the patient is a 61-year-old male with past medical history of hypertension and peripheral vascular disease with previous right fem-pop bypass. The patient has gangrene noted of the great toe of the right foot. CT angiogram was suggestive of severe tibioperoneal disease. The patient is referred for peripheral angiography and possible endovascular therapy. DESCRIPTION OF PROCEDURE: As follows: After obtaining informed consent, the patient was prepped and draped in the usual sterile fashion. The left groin was anesthetized with 2% lidocaine solution. A 5-Emirati sheath was inserted into the left common femoral artery via modified Seldinger technique. Omniflush catheter was advanced into the infrarenal abdominal aorta. Abdominal aortography was performed. The catheter was then positioned at the iliac bifurcation. Bilateral iliofemoral runoff was performed. At the conclusion of the procedure, the Omniflush catheter was removed and manual pressure was applied to achieve hemostasis. FINDINGS: The inferior renal abdominal aorta has mild ectasia and atherosclerotic plaque. Bilateral renal arteries arise normally. There is no significant renal artery stenosis. The common iliac arteries exhibit mild irregularities. The external iliac and common femoral arteries have mild disease. The left superficial femoral artery is occluded 100%. The profunda is widely patent with diffuse disease. The patient has a left below the knee amputation. In the right leg, there is a right femoral popliteal graft. The graft to the right common femoral artery is intact. The [place] right superficial femoral artery is occluded 100%. There is retrograde flow to the distal right superficial femoral artery via the graft. The graft is widely is patent and the distant anastomosis to the proximal right popliteal artery is intact. The right popliteal artery has mild disease. There is a 3-vessel runoff to the right foot. The proximal anterior tibial artery has an area of proximal 50% stenosis. There is brisk antegrade flow supplying the foot. The tibioperoneal trunk, as well as posterior, tibial, and peritoneal arteries are widely patent. CONCLUSIONS: Widely patent right femoral popliteal graft with 3-vessel runoff to the right foot. PLAN: Medical therapy. The patient may require toe amputation, however, there was observed runoff to the foot. Bob Barbosa MD
[2017-03-06 11:53] VITALS: RESP 18; O2SAT 100
== END 2017-03-05 12:34 | disposition home or self-care (01) ==
LOC: C.CATHLAB 07:30
PROVIDERS: ATTEND Internal Medicine Cardiovascular Disease
DX: I73.9 Peripheral vascular disease, unspecified (principal); I10 Essential (primary) hypertension; F17.210 Nicotine dependence, cigarettes, uncomplicated
CPT/HCPCS: 36247; 75625; 75716; 75774; 82948; 94770; C1769; J0360; J1644; J2250; J3010; Q9966; Q9967